=== PATIENT | female | born 2000 | race Caucasian/White ===

== ENCOUNTER 2023-05-04 11:59 | Inpatient (IN) ==
[2023-05-04] MEDS ORDERED: Lidocaine 1% VIAL 10 MG/ML 30 ML VIAL INJ PRN (12:39)
[2023-05-04] MEDS ORDERED: Buffered Lidocaine 1% SYRIN 1 ml INTRADERM ONE (12:39)
[2023-05-04] MEDS ORDERED: Lactated Ringers 1000 ml BAG 1,000 ML IV ONE (12:39)
[2023-05-04] MEDS ORDERED: Measles, Mumps,Rubella VACC 0.5 ML/VIAL SUBCUT ONE (12:56)
[2023-05-04] MEDS ORDERED: Witch Hazel PAD JAR TOPICAL PRN (12:56)
[2023-05-04] MEDS ORDERED: Dibucaine 1% OINT 28.35 GM TUBE PR PRN (12:56)
[2023-05-04] MEDS ORDERED: Glycerin ADULT 2.4 gm SUPP PR PRN (12:56)
[2023-05-04] MEDS ORDERED: Lactated Ringers 1000 ml BAG 1,000 ML IV SCH (13:00)
[2023-05-04 16:05] LABS: Urine Appearance Cloudy; Urine Color Red
[2023-05-04 16:06] LABS: Urine Specific Gravity 1.008 (1.002-1.030)
[2023-05-04 16:19] LABS: Urine Benzodiazepine Screen None Detected (None Detect); Urine Cannabinoids Screen Presumptive Positive (None Detect); Urine Opiates Screen None Detected (None Detect)
[2023-05-05 07:28] LABS: ABS Basophils 0.1 10^3/uL (0.0-0.1); ABS Eosinophils 0.1 10^3/uL (0.0-0.5); ABS Lymphocytes 2.1 10^3/uL (1.0-4.8); ABS Monocytes 0.9 10^3/uL (0.0-0.9); ABS Neutrophils 10.5 10^3/uL (1.5-7.6); Eosinophil % 0.9 %; Hematocrit 31.2 % (35-45); Hemoglobin 10.4 g/dL (11.5-14.3); Lymphocyte % 15.5 %; Mean Corpuscular Hemoglobin 25.4 pg (27-33); Mean Corpuscular Hgb Conc 33.3 g/dL (31-36); Mean Corpuscular Volume 76.2 fL (80-97); Platelet Count 235 10^3/uL (150-450); Red Cell Distribution Width 16.2 % (12-17); White Blood Count 13.6 10^3/uL (3.8-11.8)
[2023-05-05] MEDS ORDERED: Measles, Mumps,Rubella VACC 0.5 ML/VIAL SUBCUT ONE (18:30)
[2023-05-05] MEDS ORDERED: Measles, Mumps,Rubella VACC 0.5 ML/VIAL ONE (18:31)
[2023-05-06 09:11] VITALS: BP 107/72
== END 2023-05-06 12:45 | disposition home or self-care (01) | DRG 560 ==
LOC: MCHOBOUT 11:59 → MCHOB 12:19
PROVIDERS: ADMIT Midwife; ATTEND Midwife